=== PATIENT | male | born 1995 | race Caucasian/White ===

== ENCOUNTER 2019-11-03 18:28 | Emergency (ER) | payer OTHER ==
[~2019-11-03] VITALS: Ht 182.9 cm; Wt 71.0 kg
[2019-11-03 18:33] VITALS: BP 137/70
--- NOTE | 2019-11-03 19:05 | NUR ---
PT SITTING IN BED, NO SIGNS OF DISTRESS, RESPIRATIONS EVEN AND UNLABORED. REPORT RECEIVED FROM [facility].
== END 2019-11-03 20:27 ==
LOC: ED 20:09
DX: S93.522A Sprain of metatarsophalangeal joint of left great toe, initial encounter (principal); F17.200 Nicotine dependence, unspecified, uncomplicated; W18.30XA Fall on same level, unspecified, initial encounter; Y93.89 Activity, other specified; Y92.89 Other specified places as the place of occurrence of the external cause; Y99.8 Other external cause status
CPT/HCPCS: 99283